=== PATIENT | female | born 2000 | race Asian ===

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

== ENCOUNTER 2020-02-02 10:18 | Outpatient (CLI) | payer MEDICAID | END 2020-02-02 10:19 | disposition home or self-care (01) | LOC: LAB 10:18 | PROVIDERS: ATTEND Advanced Practice Midwife | DX: Z53.9 Procedure and treatment not carried out, unspecified reason (principal) | CPT/HCPCS: 36415; 80306; 82950; 85027 ==

== ENCOUNTER 2020-02-05 07:00 | Outpatient (CLI) | payer MEDICAID ==
[2020-02-05 17:18] LABS: MUDS CUTOFF CONCENTRATIONS CUTOFF CONC BELOW:
[2020-02-05 18:07] LABS: AMPHETAMINE SCREEN,URINE POSITIVE (NEGATIVE); BENZODIAZEPINES SCREEN, URINE NEGATIVE (NEGATIVE); COCAINE SCREEN URINE NEGATIVE (NEGATIVE); METHADONE SCREEN, URINE NEGATIVE (NEGATIVE); METHAMPHETAMINES SCREEN, URINE NEGATIVE (NEGATIVE); OPIATE SCREEN, URINE NEGATIVE (NEGATIVE); OXYCODONE SCREEN, URINE NEGATIVE (NEGATIVE); PROPOXYPHENE SCREEN, URINE NEGATIVE (NEGATIVE); TRICYCLIC ANTIDEPRESSANT,URINE NEGATIVE (NEGATIVE)
== END 2020-02-05 23:59 | disposition home or self-care (01) ==
LOC: LAB.R 07:00
PROVIDERS: ATTEND Advanced Practice Midwife
DX: Z36.89 Encounter for other specified antenatal screening (principal); Z34.00 Encounter for supervision of normal first pregnancy, unspecified trimester
CPT/HCPCS: 36415; 80306; 82950; 85027

== ENCOUNTER 2020-02-05 08:08 | Outpatient (CLI) | payer MEDICAID ==
[2020-02-05 09:29] LABS: HGB - HEMOGLOBIN 12.4 g/dL (12.0-16.0); MEAN CORPUSCULAR HEMOGLOBIN 32.3 pg (27.0-31.0); MEAN CORPUSCULAR HGB CONC 33.1 g/dL (32.0-36.0); MEAN CORPUSCULAR VOLUME 97.7 fL (81.0-99.0); MEAN PLATELET VOLUME 10.4 fL (7.9-10.8); RED BLOOD COUNT 3.84 10^6/uL (4.20-5.40); RED CELL DISTRIBUTION WIDTH 12.9 % (12.0-15.0)
[2020-02-05 11:17] LABS: MUDS CUTOFF CONCENTRATIONS CUTOFF CONC BELOW:
[2020-02-05 11:32] LABS: AMPHETAMINE SCREEN,URINE POSITIVE (NEGATIVE); BENZODIAZEPINES SCREEN, URINE NEGATIVE (NEGATIVE); COCAINE SCREEN URINE NEGATIVE (NEGATIVE); METHADONE SCREEN, URINE NEGATIVE (NEGATIVE); METHAMPHETAMINES SCREEN, URINE NEGATIVE (NEGATIVE); OPIATE SCREEN, URINE NEGATIVE (NEGATIVE); OXYCODONE SCREEN, URINE NEGATIVE (NEGATIVE); PROPOXYPHENE SCREEN, URINE NEGATIVE (NEGATIVE); TRICYCLIC ANTIDEPRESSANT,URINE NEGATIVE (NEGATIVE)
== END 2020-02-05 08:09 | disposition home or self-care (01) ==
LOC: LAB 08:08
PROVIDERS: ATTEND Advanced Practice Midwife
DX: Z34.00 Encounter for supervision of normal first pregnancy, unspecified trimester (principal)
CPT/HCPCS: 36415; 80306; 82950; 85027

== ENCOUNTER 2020-03-15 15:03 | Outpatient (CLI) | payer MEDICAID ==
[2020-03-15 15:42] LABS: MUDS CUTOFF CONCENTRATIONS CUTOFF CONC BELOW:
[2020-03-15 16:02] LABS: AMPHETAMINE SCREEN,URINE POSITIVE (NEGATIVE); BENZODIAZEPINES SCREEN, URINE NEGATIVE (NEGATIVE); COCAINE SCREEN URINE NEGATIVE (NEGATIVE); METHADONE SCREEN, URINE NEGATIVE (NEGATIVE); METHAMPHETAMINES SCREEN, URINE NEGATIVE (NEGATIVE); OPIATE SCREEN, URINE NEGATIVE (NEGATIVE); OXYCODONE SCREEN, URINE NEGATIVE (NEGATIVE); PROPOXYPHENE SCREEN, URINE NEGATIVE (NEGATIVE); TRICYCLIC ANTIDEPRESSANT,URINE NEGATIVE (NEGATIVE)
--- NOTE | 2020-03-15 19:27 | PROVIDER PROGRESS NOTE ---
Subjective - Subjective Subjective: S: Patient presents with c/o contractions which have become increasingly uncomfortable through the day. She denies vaginal bleeding or leakage of fluid and reports +FM. Her boyfriend and FOB is present and supportive. When questioned regarding +Amphetamine on UTOX pt initially states she has only used saline nasal spray secondary to her recent congestion. After further discussion she asks partner to leave the room. Once partner is out of the room the pt admits to methamphetamine use approximately 7 days ago. She states she honestly cannot remember clearly if she has used since then but has not used in the past 3 days. She states she does want to tell her partner but she is slightly concerned with how he will react. When partner enters pt admits to him she used methamphetamine. Pt is surprised by this but has remained supportive. She states she initially developed congestion 4 days ago and then 48 hours ago she developed a fever which has since resolved. She is unaware of any exposure to COVID-19 infected individuals. She is very teary when discussing withdrawal. She states she wants to get help. She lives with her mom who has only today become aware of pt's methamphetamine use but remains supportive. Pt states she feels well supported and thinks she can easily stay clean knowing she has her baby and the support of her mom and FOB. O: FHR baseline 135, moderate variability, + accels, no decels Contractions palpate moderate every 5-6 minutes with soft resting tone SVE 3/70/-3, posterior, soft with minimal change 2 hours later to 3/90/-3, posterior, soft BSUS verified VERTEX UTOX POSITIVE AMPHETAMINE COVID-19 test collected - pending A: 20yo @ 37.1wks gestation Early labor Nasal congestion/cough Presumed COVID-19 positive secondary to symptoms and recent fever Current amphetamine use complicating P: Reviewed patient status with oral and maxillofacial surgeon physician. 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 Discussed presumed COVID-19 positive status secondary to symptoms. Discussed with patient notification of CPS following delivery and strongly encouraged her to be open and honest with healthcare providers, pediatricians, social workers, and CPS workers. Pt verbalized understanding and agrees to above plan. She denies further questions or concerns today. Care transferred to oral and maxillofacial surgeon physician to facilitate transfer of care. Objective - Vital Signs/Intake & Output Vital Signs: Vital Signs x48h Temp Pulse Resp BP Pulse Ox 03/15/20 15:25 36.7 C 86 18 133/81 H 99 - Lab Results Other Labs: Lab Results x24hrs 03/15/20 Range/Units 15:35 Urine Opiates Screen NEGATIVE (NEGATIVE) Ur Oxycodone Screen NEGATIVE (NEGATIVE) Urine Methadone Screen NEGATIVE (NEGATIVE) Ur Propoxyphene Screen NEGATIVE (NEGATIVE) Ur Barbiturates Screen NEGATIVE (NEGATIVE) Ur Tricyclics Screen NEGATIVE (NEGATIVE) Ur Phencyclidine Scrn NEGATIVE (NEGATIVE) Ur Amphetamine Screen POSITIVE H (NEGATIVE) U Methamphetamines Scrn NEGATIVE (NEGATIVE) U Benzodiazepines Scrn NEGATIVE (NEGATIVE) Urine Cocaine Screen NEGATIVE (NEGATIVE) U Cannabinoids Screen NEGATIVE (NEGATIVE)
[2020-03-15 19:49] LABS: BASOPHILS # (AUTO) 0.1 10^3/uL (0.0-0.1); BASOPHILS % (AUTO) 0.6 %; EOSINOPHILS # (AUTO) 0.5 10^3/uL (0.0-0.7); HGB - HEMOGLOBIN 12.5 g/dL (12.0-16.0); LYMPHOCYTES # (AUTO) 1.8 10^3/uL (1.5-3.5); LYMPHOCYTES % (AUTO) 14.7 %; MEAN CORPUSCULAR HEMOGLOBIN 30.9 pg (27.0-31.0); MEAN CORPUSCULAR HGB CONC 32.9 g/dL (32.0-36.0); MEAN CORPUSCULAR VOLUME 94.1 fL (81.0-99.0); MEAN PLATELET VOLUME 10.9 fL (7.9-10.8); MONOCYTES # (AUTO) 0.7 10^3/uL (0.0-1.0); MONOCYTES % (AUTO) 6.1 %; NEUTROPHILS # (AUTO) 8.9 10^3/uL (1.5-6.6); NEUTROPHILS % (AUTO) 73.7 %; PLT - PLATELET COUNT 255 10^3/uL (130-450); RED BLOOD COUNT 4.04 10^6/uL (4.20-5.40); RED CELL DISTRIBUTION WIDTH 12.5 % (12.0-15.0); WHITE BLOOD COUNT 12.1 x10^3/uL (4.8-10.8)
[2020-03-15] MEDS ORDERED: LACTATED RINGERS 1,000 ML IV SCH (20:00)
[2020-03-15] MEDS ORDERED: AMPICILLIN 2 GM in SODIUM CHLORIDE 0.9% MINIBAG 100 ML IV SCH (20:00)
--- NOTE | 2020-03-15 21:17 | PREOP HISTORY & PHYSICAL ---
DATE OF SERVICE: 03/15/2020 Physician: Andrew Lopez MD IDENTIFICATION: The patient is a 20-year-old G1, P0 female. Her EDC is 04/04/2020. This was determined with early visits. Her first visit was at 13 weeks EGA. HISTORY OF PRESENT ILLNESS: The patient presents with contractions. These are ones she can breathe through at this time. Her examination upon arrival here was 3 cm, 90% and -2. The patient also gives a two-day history of having developed a cough, congestion. She had a fever two days ago, but this has resolved. She currently has a COVID test, which is pending. The patient throughout this has had positive drug screens including today. These were all three for amphetamine, but negative for methamphetamine. She does admit to having done methamphetamine seven days ago. Her laboratories show her to be A positive. She is rubella immune. Her 50 gram Glucola was 123. PAST MEDICAL HISTORY: Positive for fracture of the right hand. PAST SURGICAL HISTORY: None. ALLERGIES: NONE KNOWN. CURRENT MEDICATIONS: Those of vitamins. HABITS: The patient smokes half pack of cigarettes per day. Denies use of alcohol. She does have positive drug screens through her for amphetamines. These have been negative, however, for methamphetamines. Upon consulting with rig builder helper, he feels it would be best to transfer baby out and mother, if possible, so that if the baby goes through withdrawal, the infant would be at a facility that would be compatible with dealing with an infant with withdrawal. PHYSICAL EXAMINATION VITAL SIGNS: Blood pressure 133/81, temperature is 36.7, oxygen is 99 on room air. HEENT: Pupils are equal, round. Extraocular muscles are intact. CARDIOVASCULAR: Regular rate and rhythm without murmurs. LUNGS: Lung juarez are clear without rales or wheezes. ABDOMEN: Her most recent fundal height was noted to be 34 cm at 33 weeks. PELVIC: Exam performed by Jolene Mon was noted to be 3 cm, 90%, -2. IMPRESSION 1. A 20-year-old primigravida at 37 weeks and 1 day. 2. 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 PLAN: I have discussed with rig builder helper, Dr. Mendoza Patel, here about delivering the here. He would prefer delivering the at a facility that could handle withdrawal. I have discussed with physician at [facility] and at this point, they state they have the nursery capability and have accepted transfer. [facility] charge nurse called back and stated that there unit was currently full adn asked that she be transferred to [facility] [place]. [facility] contacted and they accepted her there. Because of the unreliability of the ambulance service i elected to go with [facility]. TD: 03/15/2020 19:15 SUSANNA
[2020-03-15 21:37] VITALS: BP 119/80
== END 2020-03-15 21:03 | disposition short-term general hospital (02) ==
LOC: WFO 15:03 → FBP 15:06 → WFO 21:03
PROVIDERS: ATTEND Nurse Practitioner Obstetrics & Gynecology
DX: O99.323 Drug use complicating pregnancy, third trimester (principal); F15.90 Other stimulant use, unspecified, uncomplicated; O99.333 Smoking (tobacco) complicating pregnancy, third trimester; F17.210 Nicotine dependence, cigarettes, uncomplicated; O26.893 Other specified pregnancy related conditions, third trimester; R05 Cough; Z20.828 Contact with and (suspected) exposure to other viral communicable diseases; Z3A.37 37 weeks gestation of pregnancy
CPT/HCPCS: 80306; 85025; 87635; 87797; 96365; 99213; J7120; 85027

== ENCOUNTER 2021-07-15 15:39 | Emergency (ER) | payer MEDICAID ==
[2021-07-15] MEDS ORDERED: ALBUTEROL 1 PUFF INH STA (17:09)
--- NOTE | 2021-07-15 17:11 | ED Physician Documentation ---
History of Present Illness - Stated complaint Stated Complaint: CHEST PX, DIFFICULTY BREATHING - Chief complaint Chief Complaint: Cardiac - History obtained from History obtained from: Patient - History of Present Illness Timing: How many weeks ago (3) Pain level max: 3 Pain level now: 2 - Additonal information Additional information: Patient is a 21-year-old female who comes to the emergency department complaining of coughing and chest tightness for the past 3 weeks since being diagnosed with Covid. She has been fully vaccinated. She feels like it is difficult to take a deep breath. No fevers. No chills. Is still having coughing. She is not on any medications at home. The pain does not radiate. She denies any medical history. Patient is not . Review of Systems Ten Systems: 10 systems reviewed and negative Constitutional: denies: Fever, Chills Nose: denies: Rhinorrhea / runny nose, Congestion Throat: denies: Sore throat Cardiac: denies: Palpitations Respiratory: reports: Dyspnea, Wheezing GI: denies: Vomiting, Diarrhea Skin: denies: Rash Musculoskeletal: denies: Neck pain, Back pain Neurologic: denies: Headache PD PAST MEDICAL HISTORY - Past Medical History Past Medical History: Yes Respiratory: Asthma, Other - Past Surgical History Past Surgical History: No - Present Medications Home Medications: Ambulatory Orders Medication Instructions Recorded Confirmed Albuterol Sulf [Ventolin Hfa 2 puffs INH Q4HR PRN #1 inhaler 04/25/17 Inhaler] Benzonatate [Tessalon Perle] 100 - 200 mg PO TID PRN #30 capsule 04/25/17 Cetirizine HCl/Pseudoephedrine 1 each PO BID PRN #30 tab.er.12h 04/25/17 [Zyrtec-D Tablet] predniSONE [Prednisone] 20 mg PO DAILY #5 tablet 04/25/17 Albuterol Sulf [Ventolin Hfa 1 - 2 puffs INH Q4HR PRN #1 inhaler 05/24/18 Inhaler] Benzonatate [Tessalon Perle] 100 - 200 mg PO TID PRN #30 capsule 05/24/18 Doxycycline Hyclate 100 mg PO BID #14 capsule 05/24/18 dexAMETHasone [Decadron] 4 mg PO DAILY #5 tablet 05/24/18 Albuterol Sulf [Ventolin Hfa 1 - 2 puffs INH Q4HR PRN #1 inhaler 07/15/21 Inhaler] - Allergies Allergies/Adverse Reactions: Allergies Allergy/AdvReac Type Severity Reaction Status Date / Time No Known Drug Allergies Allergy Verified 07/15/21 15:41 - Social History Does the pt smoke?: No Smoking Status: Never smoker Does the pt drink ETOH?: No Does the pt have substance abuse?: No - Immunizations Immunizations are current?: Yes - POLST Patient has POLST: No PD ED PE NORMAL - Vitals Vital signs reviewed: Yes - General General: Alert and oriented X 3, No acute distress, Well developed/nourished - HEENT HEENT: PERRL, Moist mucous membranes - Neck Neck: Supple, no meningeal sign - Cardiac Cardiac: RRR - Respiratory Respiratory: No respiratory distress, Other (mild wheeze B) - Abdomen Abdomen: Soft, Non tender, Non distended - Derm Derm: Warm and dry - Extremities Extremities: No edema, No calf tenderness / cord - Neuro Neuro: Alert and oriented X 3 - Psych Psych: Normal mood, Normal affect Results - Vitals Vitals: Vital Signs - 24 hr 07/15/21 07/15/21 07/15/21 15:43 15:48 17:31 Temperature 37.1 C 37.1 C Heart Rate 106 H 106 H 70 Respiratory 18 18 20 Rate Blood Pressure 149/113 H 149/113 H O2 Saturation 97 97 07/15/21 18:14 Temperature 36.5 C Heart Rate 90 Respiratory 14 Rate Blood Pressure 148/88 H O2 Saturation 98 Oxygen O2 Source Room air - EKG (time done) 1544 Rate: Rate (enter#) (112) Rhythm: Sinus tachycardia [place]: Normal Intervals: Normal MA QRS: Normal Ischemia: Normal ST segments - Rads (name of study) cxr Radiology: Final report received, EMP read contemporaneously, See rad report (no acute disease) PD MEDICAL DECISION MAKING - ED course Complexity details: reviewed results, re-evaluated patient, considered differential, d/w patient ED course: 21-year-old female with mild wheezing. This resolved with albuterol treatment. Chest tightness also resolved with albuterol treatment. She feels better. No acute findings on EKG or chest x-ray. Patient is well-appearing, nontoxic. Afebrile. No hypoxia. No respiratory distress. Patient counseled regarding signs and symptoms for which I believe and urgent re-evaluation would be necessary. Patient with good understanding of and agreement to plan and is comfortable going home at this time This document was made in part using voice recognition software. While efforts are made to proofread this document, sound alike and grammatical errors may occur. Departure - Departure Disposition: Home, Self Care Clinical Impression: Viral URI Condition: Good Instructions: ED Viral Syndrome Follow-Up: your,doctor in 1week [Other] Prescriptions: Albuterol Sulf [Ventolin Hfa Inhaler] 1 - 2 puffs INH Q4HR PRN #1 inhaler PRN Reason: Shortness Of Air/Wheezing Comments: Your prescriptions were sent to [facility] in [place]. Please follow-up with your doctor in 1 week for repeat evaluation. Your chest x-ray does not show any acute abnormalities today. Discharge Date/Time: 07/15/21 18:14
--- NOTE | 2021-07-15 17:51 | XRAY Report ---
PROCEDURE: Chest 2 View X-Ray INDICATIONS: cough TECHNIQUE: 2 view(s) of the chest. COMPARISON: None. FINDINGS: Surgical changes and devices: None. Lungs and pleura: No pleural effusions or pneumothorax. Lungs are clear. Mediastinum: Mediastinal contours are normal. Heart size is normal. Bones and chest wall: No suspicious bony abnormalities. Soft tissues appear unremarkable. IMPRESSION: No acute cardiopulmonary pathology. Reviewed by: Boy Cardenas MD on 07/15/2021 5:49 PM PST Approved by: Boy Cardenas MD on 07/15/2021 5:49 PM PST Station ID: [id number]
[2021-07-15 18:15] VITALS: BP 148/88
== END 2021-07-15 18:14 | disposition home or self-care (01) ==
LOC: ED 15:39
DX: U07.1 COVID-19 (principal); J06.9 Acute upper respiratory infection, unspecified
CPT/HCPCS: 93005; 94640; 94664; 99282; 99283

== ENCOUNTER 2023-07-06 08:00 | Outpatient (CLI) | payer MEDICAID ==
[2023-07-06 16:56] LABS: BILIRUBIN,URINE NEGATIVE (NEGATIVE); GLUCOSE, URINE (UA) NEGATIVE (NEGATIVE); KETONES,URINE (UA) NEGATIVE (NEGATIVE); LEUKOCYTE ESTERASE, URINE NEGATIVE (NEGATIVE); NITRITE,URINE NEGATIVE (NEGATIVE); OCCULT BLOOD,URINE NEGATIVE (NEGATIVE); PROTEIN,URINE 100 mg/dL (NEGATIVE); UROBILINOGEN,URINE 0.2 (NORMAL) E.U./dL (NORMAL)
[2023-07-06 17:00] LABS: CLARITY,URINE CLOUDY (CLEAR)
[2023-07-06 17:09] LABS: AMORPHOUS SEDIMENT,UR Marked /LPF; BACTERIA,URINE Rare /HPF (None Seen); RBC,URINE None Seen /HPF (0-5); SQUAMOUS EPITHELIAL CELL,UR RARE Squamous (<= Few); WBC,URINE 0-3 /HPF (0-5)
== END 2023-07-06 23:59 | disposition home or self-care (01) ==
LOC: LAB.WC 08:00
PROVIDERS: ATTEND Obstetrics & Gynecology
DX: Z34.90 Encounter for supervision of normal pregnancy, unspecified, unspecified trimester (principal)
CPT/HCPCS: 81001; 87086

== ENCOUNTER 2023-07-14 11:41 | Outpatient (CLI) | payer MEDICAID ==
[2023-07-14 12:24] LABS: BASOPHILS % (AUTO) 0.4 %; EOSINOPHILS # (AUTO) 0.1 10^3/uL (0.0-0.7); HCT - HEMATOCRIT 40.4 % (37.0-47.0); HGB - HEMOGLOBIN 12.8 g/dL (12.0-16.0); LYMPHOCYTES # (AUTO) 1.9 10^3/uL (1.5-3.5); LYMPHOCYTES % (AUTO) 22.9 %; MEAN CORPUSCULAR HEMOGLOBIN 28.5 pg (27.0-31.0); MEAN CORPUSCULAR HGB CONC 31.7 g/dL (32.0-36.0); MEAN PLATELET VOLUME 10.1 fL (7.9-10.8); MONOCYTES # (AUTO) 0.4 10^3/uL (0.0-1.0); MONOCYTES % (AUTO) 4.8 %; NEUTROPHILS # (AUTO) 5.8 10^3/uL (1.5-6.6); NEUTROPHILS % (AUTO) 70.4 %; PLT - PLATELET COUNT 263 10^3/uL (130-450); RED BLOOD COUNT 4.49 10^6/uL (4.20-5.40); RED CELL DISTRIBUTION WIDTH 12.9 % (12.0-15.0); WHITE BLOOD COUNT 8.3 x10^3/uL (4.8-10.8)
--- NOTE | 2023-07-14 21:13 | Ultrasound Report ---
PROCEDURE: OB 1st Trimester w/TV INDICATIONS: POSITIVE TEST OUTSIDE/PRIOR DATING DATA: Last menstrual period (LMP): 05/03/2023. LMP-based estimated date of delivery (TILA): 02/07/2024. First dating scan (date and location): 07/14/2023. Estimated date of delivery (TILA) from first dating scan: 02/23/2024. TECHNIQUE: Real-time scanning was performed of the fetus and maternal pelvic organs, with image documentation. Endovaginal scanning was also performed to better visualize the fetus and maternal ovaries. COMPARISON: None. FINDINGS: Intrauterine gestational sac present. Embryo: [place]-rump length 1.6 cm corresponds with 8 week 0 day gestation. Heart rate: 166 bpm. Other: No perigestational fluid collection. Measurement variability in dating: +/- 4 weeks by LMP, +/- 7 days by mean sac diameter (use before 6 weeks gestation if crown-rump length not able to be measured), +/- 5 days by crown-rump length (6-12 weeks gestation). Maternal organs: Ovaries appear within normal limits. IMPRESSION: Single live intrauterine consistent with 8 week 0 day gestation Reviewed by: Suhail Waller MD on 07/14/2023 8:11 PM [facility] Approved by: Suhail Waller MD on 07/14/2023 8:11 PM [facility] Station ID: [id number]
[2023-07-15 07:11] LABS: HBsAG SCREEN Negative (Negative); RPR Non Reactive (Non Reactive)
[2023-07-15 08:11] LABS: VARICELLA-ZOSTER AB IGG 1015 index (Immune >165)
[2023-07-16 00:08] LABS: HCV AB Non Reactive (Non Reactive); HIV SCREEN 4TH GENERATION Non Reactive (Non Reactive)
== END 2023-07-14 11:42 | disposition home or self-care (01) ==
LOC: DI 11:41
PROVIDERS: ATTEND Nurse Practitioner
DX: Z34.91 Encounter for supervision of normal pregnancy, unspecified, first trimester (principal)
CPT/HCPCS: 36415; 85025; 86592; 86762; 86787; 86803; 86850; 86900; 86901; 87340; 87389

== ENCOUNTER 2023-08-04 08:00 | Outpatient (CLI) | payer MEDICAID ==
[2023-08-04 18:41] LABS: CHLAMYDIA TRACHOMATIS DNA NEGATIVE (NEGATIVE); NEISSERIA GONORRHOEAE DNA NEGATIVE (NEGATIVE); TRICHOMONAS VAGINALIS DNA NEGATIVE (NEGATIVE)
== END 2023-08-04 23:59 | disposition home or self-care (01) ==
LOC: LAB.WC 08:00
PROVIDERS: ATTEND Obstetrics & Gynecology
DX: Z11.3 Encounter for screening for infections with a predominantly sexual mode of transmission (principal)
CPT/HCPCS: 87491; 87591; 87661

== ENCOUNTER 2023-10-04 08:00 | Outpatient (CLI) | payer OTHER, MEDICAID | END 2023-10-04 23:59 | disposition home or self-care (01) | LOC: LAB.WC 08:00 | PROVIDERS: ATTEND Obstetrics & Gynecology | DX: F19.11 Other psychoactive substance abuse, in remission (principal) | CPT/HCPCS: 80307; 81599 ==

== ENCOUNTER 2023-10-04 11:24 | Outpatient (CLI) | payer OTHER, MEDICAID ==
[2023-10-04 12:16] LABS: THYROID STIMULATING HORMONE 2.24 uIU/mL (0.34-5.60)
[2023-10-04 12:17] LABS: CREATININE,URINE 44.6 mg/dL; PROTEIN/CREATININE RATIO,URINE 0.3 (<=0.2)
[2023-10-04 13:49] LABS: ESTIMATED AVERAGE GLUCOSE 143 mg/dL (70-100); HEMOGLOBIN A1c% 6.6 % (4.27-6.07)
== END 2023-10-04 11:25 | disposition home or self-care (01) ==
LOC: LAB 11:24
PROVIDERS: ATTEND Obstetrics & Gynecology
DX: O99.210 Obesity complicating pregnancy, unspecified trimester (principal); E66.01 Morbid (severe) obesity due to excess calories
CPT/HCPCS: 36415; 81511; 82570; 83036; 84156; 84443

== ENCOUNTER 2023-10-12 15:00 | Outpatient (CLI) | payer OTHER, MEDICAID ==
--- NOTE | 2023-10-12 17:08 | Ultrasound Report ---
PROCEDURE: OB Anatomy Scan INDICATIONS: SUPERVISION OF NORMAL OUTSIDE/PRIOR DATING DATA: Last menstrual period (LMP): 05/03/2023. LMP-based estimated date of delivery (TILA): 02/07/2024. First dating scan (date and location): 07/14/2023. Estimated date of delivery (TILA) from first dating scan: 02/23/2024. The below data below was generated using the ultrasound TILA of 02/23/2024 TECHNIQUE: Real-time scanning was performed of the fetus, with image documentation and biometric measurements. Endovaginal scanning: Not performed. COMPARISON: Ultrasound 07/14/2023 FINDINGS: General: A single living intrauterine gestation is present. Presentation: Vertex Placenta: Placental position is anterior, without previa. Amniotic fluid index: 11.9 cm, within normal limits for gestational age. heart rate: 153 beats per minute. Maternal cervical canal: 4.4 cm long; normal length is 2.5 cm or more. biometrics: Biparietal diameter: 5.4 cm, 22 weeks 2 days, 94th percentile Head circumference: 18.9 cm, 21 weeks 1 day, 56th percentile Abdominal circumference: 15.5 cm, 20 weeks 5 days, 38th percentile Femur length: 3.3 cm, 20 weeks 3 days, 27th percentile Estimated gestational age from initial scan: 20 weeks 6 days Composite gestational age from present scan: 21 weeks 1 day Estimated weight and percentile: 372 g, 36.5 percentile Measurement variability in biometric dating: +/- 10 days from 12-20 weeks gestation, +/- 2 weeks from 20-30 weeks gestation, +/- 3 weeks at 30 weeks gestation or later. Anatomic survey: Neuro: Ventricles are normal at less than 10 mm. Cisterna magna is normal at 3-11 mm. Cerebellum i s normal in size and morphology. Nuchal skin fold: Normal at less than 6 mm between 14 and 20 weeks gestational age. Face: Nose and lips, facial profile are normal. Spine: No evidence for spina bifida. Heart: 4-chambered heart is present, with normal ventricular outflow tracts. Diaphragm: Diaphragm is intact. Stomach: Left-sided stomach is present. Kidneys: No hydronephrosis. Normal is less than 5 mm in 2nd trimester, less than 7 mm in 3rd trimester. Cord: 3 vessel cord has orthotopic insertion. Bladder: Normal in size. Extremities: All 4 extremities are visualized. IMPRESSION: Single living intrauterine at 20 weeks 6 days, TILA of 02/23/2024. Normal anatomy survey. Estimated weight of 372 g, 36.5 percentile. Reviewed by: Bladimir Fournier MD on 10/12/2023 5:07 PM PDT Approved by: Bladimir Fournier MD on 10/12/2023 5:07 PM PDT Station ID: [id number]
== END 2023-10-12 15:01 | disposition home or self-care (01) ==
LOC: DI 15:00
PROVIDERS: ATTEND Nurse Practitioner
DX: Z34.92 Encounter for supervision of normal pregnancy, unspecified, second trimester (principal)

== ENCOUNTER 2023-11-24 14:51 | Outpatient (CLI) | payer OTHER, MEDICAID ==
[2023-11-24 15:11] LABS: HCT - HEMATOCRIT 38.9 % (37.0-47.0); HGB - HEMOGLOBIN 12.6 g/dL (12.0-16.0); MEAN CORPUSCULAR HEMOGLOBIN 29.3 pg (27.0-31.0); MEAN CORPUSCULAR HGB CONC 32.4 g/dL (32.0-36.0); MEAN CORPUSCULAR VOLUME 90.5 fL (81.0-99.0); MEAN PLATELET VOLUME 11.1 fL (7.9-10.8); RED BLOOD COUNT 4.3 10^6/uL (4.20-5.40); RED CELL DISTRIBUTION WIDTH 13.2 % (12.0-15.0); WHITE BLOOD COUNT 10.9 x10^3/uL (4.8-10.8)
[2023-11-24 15:48] LABS: ALBUMIN 3.9 g/dL (3.2-5.5); ALBUMIN/GLOBULIN RATIO 1.3 (1.0-2.2); BILIRUBIN,TOTAL 0.2 mg/dL (0.2-1.0); CALCIUM 9.8 mg/dL (8.5-10.3); CREATININE 0.5 mg/dL (0.6-1.3); POTASSIUM 3.9 mmol/L (3.5-4.5); TOTAL PROTEIN 6.8 g/dL (6.4-8.9)
[2023-11-24 16:05] LABS: CREATININE,URINE 115.1 mg/dL; PROTEIN/CREATININE RATIO,URINE 0.5 (<=0.2)
[2023-11-24 20:55] LABS: ESTIMATED AVERAGE GLUCOSE 120 mg/dL (70-100); HEMOGLOBIN A1c% 5.8 % (4.27-6.07)
[2023-11-25 04:13] LABS: RPR Non Reactive (Non Reactive)
== END 2023-11-24 14:52 | disposition home or self-care (01) ==
LOC: LAB 14:51
PROVIDERS: ATTEND Obstetrics & Gynecology
DX: O24.414 Gestational diabetes mellitus in pregnancy, insulin controlled (principal); O16.9 Unspecified maternal hypertension, unspecified trimester; O09.92 Supervision of high risk pregnancy, unspecified, second trimester
CPT/HCPCS: 36415; 80053; 82570; 83036; 84156; 85027; 86592

== ENCOUNTER 2023-11-30 17:11 | Outpatient (CLI) | payer OTHER, MEDICAID ==
--- NOTE | 2023-11-30 19:22 | Ultrasound Report ---
PROCEDURE: OB Follow up INDICATIONS: SUPERVISION HIGH RISK ,DM OUTSIDE/PRIOR DATING DATA: Last menstrual period (LMP): 05/03/2023. LMP-based estimated date of delivery (TILA): 02/07/2024. First dating scan (date and location): 07/14/2023. Estimated date of delivery (TILA) from first dating scan: 02/23/2024. The below data below was generated using the working TILA of 02/23/2024 TECHNIQUE: Ultrasound of the gravid uterus was performed and recorded. COMPARISON: None. FINDINGS: General: A single live intrauterine gestation is present. Presentation: Vertex Placenta: Placental position is anterior without previa. Amniotic fluid index: 14.2 cm, 45 percentile for gestational age. heart rate: 148 beats per minute. Maternal cervical canal: Not imaged biometrics: Biparietal diameter: 4.49 cm, 30 week 0 day, 94.2 percentile Head circumference: 27.21 cm, 29 week 5 day, 77.1 percentile Abdominal circumference: 24.45 cm, 28 week 5 day, 68.5 percentile Femur length: 5.06 cm, 27 week 1 day, 16.8 percentile Estimated gestational age by working dates: 27 week 6 day Composite gestational age by current ultrasound: 28 week 6 day Estimated weight and percentile: 1216 g, 57.6 percentile Measurement variability in biometric dating: +/- 10 days from 12-20 weeks gestation, +/- 2 weeks from 20-30 weeks gestation, +/- 3 weeks at 30 weeks gestation or more. Other: Not applicable. IMPRESSION: Single live intrauterine consistent with 28 week 6 day gestation by current ultrasound Reviewed by: Suhail Waller MD on 11/30/2023 6:21 PM [facility] Approved by: Suhail Waller MD on 11/30/2023 6:21 PM [facility] Station ID: [id number]
== END 2023-11-30 17:12 | disposition home or self-care (01) ==
LOC: DI 17:11
PROVIDERS: ATTEND Obstetrics & Gynecology
DX: O09.93 Supervision of high risk pregnancy, unspecified, third trimester (principal); O24.414 Gestational diabetes mellitus in pregnancy, insulin controlled; O16.3 Unspecified maternal hypertension, third trimester; Z3A.28 28 weeks gestation of pregnancy